=== PATIENT | male | born 1975 | race Caucasian/White ===

== ENCOUNTER 2020-05-01 16:19 | Emergency (ER) | payer SELFPAY ==
[2020-05-01 16:35] VITALS: BP 116/67; PULSE 72; RESP 14; TEMP 36.7; O2SAT 98; BMI 29.9
--- NOTE | 2020-05-01 16:36 | ECG_ITS ---
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
--- NOTE | 2020-05-01 16:36 | XR_ITS ---
WS: [id number] PORTABLE CHEST HISTORY: chest pain COMPARISON: None available. Very minimal bronchial thickening in the RIGHT medial RIGHT lower lobe. Otherwise lungs are clear. No pleural effusion or pneumothorax. Cardiac size: Normal. Mediastinum/Aorta: Normal mediastinum. No osseous abnormality seen. XR/XR chest 1V portable [id number] IMPRESSION: Mild bronchitis medial RIGHT lower lobe.
[2020-05-01 17:25] LABS: Basophils # 0.1 10^3/uL (0.0-0.1); Basophils % 0.7 %; Eosinophils # 0.1 10^3/uL (0.0-0.8); Eosinophils % 0.7 %; Hematocrit 47.3 % (42.0-52.0); Hemoglobin 15.7 g/dL (11.7-16.6); Lymphocytes # 1.3 10^3/uL (0.8-4.8); Lymphocytes % 11.6 %; Mean Corpuscular HGB Conc 33.2 g/dL (30.0-36.0); Mean Corpuscular Hemoglobin 29.6 pg (28.0-34.0); Mean Corpuscular Volume 89.1 fL (80-94); Mean Platelet Volume 8.5 fL (7.4-10.4); Monocytes # 0.6 10^3/uL (0.2-0.9); Monocytes % 5.5 %; Neutrophils # 8.72 10^3/uL (1.8-7.7); Neutrophils % 81.2 %; Nucleated Red Blood Cells % 0 %; Platelet Count 360 10^3/cmm (130-400); Red Blood Count 5.31 10^6/uL (4.1-5.3); White Blood Count 10.7 10^3/uL (4.0-10.0)
[2020-05-01 17:44] LABS: Alanine Aminotransferase 18 U/L (0-41); Alkaline Phosphatase 97 IU/L (40-130); Anion Gap 11.7 (5-19); Aspartate Amino Transferase 15 U/L (0-40); Blood Urea Nitrogen 15 mg/dL (6-20); Calcium 9.9 mg/dL (8.5-10.5); Carbon Dioxide 29 mmol/L (22-29); Chloride 102 mmol/L (98-107); Glomerular Filtration Rate 90.8 mL/min (90-130); Glucose 114 mg/dL (65-115); Osmolality Calculated 290 mOsm/kg (285-295); Potassium 3.7 mmol/L (3.5-5.1); Sodium 139 mmol/L (136-145); Total Bilirubin 0.3 mg/dL (0.15-1.2)
[2020-05-01 18:29] LABS: Troponin(5th) Baseline 6 ng/L (0-15)
== END 2020-05-01 17:55 | disposition left against medical advice (07) ==
LOC: ER 16:37
PROVIDERS: Emergency Provider Physician Assistant
DX: Z53.21 Procedure and treatment not carried out due to patient leaving prior to being seen by health care provider (principal)
CPT/HCPCS: 36415; 71045; 80053; 84484; 85025; 93005; 99281; 99283

== ENCOUNTER 2022-12-13 13:56 | Emergency (ER) | payer SELFPAY ==
[2022-12-13 14:05] VITALS: BP 131/89; PULSE 80; RESP 18; TEMP 36.8; O2SAT 98; BMI 30.7
--- NOTE | 2022-12-13 14:15 | CTR_ITS ---
PROCEDURE INFORMATION: Exam: CT Abdomen And Pelvis With Contrast Exam date and time: 12/13/2022 3:22 PM Age: 46 years old Clinical indication: Abdominal pain; Localized; Right lower quadrant (rlq); Additional info: Abd pain TECHNIQUE: Imaging protocol: Computed tomography of the abdomen and pelvis with contrast. Radiation optimization: All CT scans at this facility use at least one of these dose optimization techniques: automated exposure control; mA and/or kV adjustment per patient size (includes targeted exams where dose is matched to clinical indication); or iterative reconstruction. Contrast material: OMNI 350; Contrast volume: 100 ml; Contrast route: INTRAVENOUS (IV); REPORTING DATA: Count of CT and Cardiac NM exams in prior 12 months: This patient has received 0 known CTs and 0 known cardiac nuclear medicine studies in the 12 months prior to the current study. COMPARISON: CR XR chest 1V portable [id number] 05/01/2020 4:44 PM RADIATION DOSE METRICS: Total DLP (mGy-cm): 735.78 FINDINGS: Lungs: Bilateral dependent atelectasis. Diaphragm: Small hiatal hernia. Liver: Normal without focal lesions. Gallbladder and bile ducts: Normal. No calcified stones. No ductal dilation. Pancreas: Normal without ductal dilatation. Spleen: Normal. Adrenal glands: Normal. No mass. Kidneys and ureters: Bilateral renal cysts are present, as well as other subcentimeter hypodensities which are too small to characterize. These are statistically likely benign and require no dedicated imaging follow-up. Punctate left renal calcification. Otherwise unremarkable. Stomach and bowel: No dilatation. No mucosal thickening. Appendix: Normal. Intraperitoneal space: Unremarkable. No free air. No significant fluid collection. Vasculature: Unremarkable. No abdominal aortic aneurysm. Lymph nodes: No enlarged lymph nodes. Urinary bladder: Underdistended urinary bladder with mild wall thickening. Reproductive: Unremarkable as visualized. Bones/joints: No acute fracture. Mild degenerative changes along the imaged axial and proximal appendicular skeletal system. Soft tissues: Small fat containing umbilical hernia and tiny fat containing left inguinal hernia. CT/CT abdomen pelvis w con* [id number] IMPRESSION: 1. No acute findings to explain right lower quadrant abdominal pain. 2. Punctate nonobstructive left nephrolith. COMMENTS: Consistent with the [employer]'s Incidental Findings Committee white paper (J Am Asha Radiol 2018): Any incidental renal lesion less than 1 cm or classified as too small to characterize, or any incidental cystic renal lesion characterized as simple-appearing, is likely benign. No follow-up imaging is recommended for these lesions per consensus recommendations based on imaging criteria.
--- NOTE | 2022-12-13 14:18 | ED_ITS ---
HPI - Abdominal Pain General: Chief Complaint: Abdominal Pain Stated Complaint: losing consiousness, right side abd pain Time Seen by Provider: 12/13/22 14:04 Source: patient Mode of arrival: ambulatory Limitations: no limitations History of Present Illness: 46-year-old male states been having right side abdominal pain over the last 2 days. States this morning like it a burning sensation his upper abdomen he has been having a lot of burping as well states that he started having lower abdominal pain now states pain sharp in nature rates it a 5 out of 10 denies any diarrhea denies any fevers. He denies any worsening proving factors. Associated Symptoms: Denies chills, diarrhea, fever(s), nausea and vomiting Review of Systems Const: Denies: fever(s) or chills ENMT: Denies: throat pain or dental pain Card: Denies: chest pain Resp: Denies: dyspnea GI: Reports: abdominal pain; Denies: nausea, vomiting or diarrhea Musc: Denies: neck pain or back pain Skin/Breast: Denies: rash Neuro: Denies: headache(s) Physical Exam Const: COMMON NORMALS: no acute distress, patient oriented x3 and healthy appearing HENMT: COMMON NORMALS: normocephalic and atraumatic HEAD & SCALP: normocephalic and atraumatic Neck/C-Spine: COMMON NORMALS: full ROM and supple Chest: COMMONS NORMALS: normal inspection of the chest Resp: COMMON NORMALS: normal respiratory effort Cardio: COMMON NORMALS: regular rate, regular rhythm and No murmurs present (Cardio) RATE: regular rate RHYTHM: regular rhythm GI: COMMON NORMALS: Normal to inspection, nondistended, normoactive bowel sounds present, Soft to palpation and no masses PALPATION: Yes Soft to palpation OTHER: right sided abdominal tenderness Extremity: COMMON NORMALS: normal to inspection and full ROM Neuro: COMMON NORMALS: patient oriented x3, moves all extremities and no focal motor deficits Psych: COMMON NORMALS: mental status grossly normal, Normal thought process present and cooperative THOUGHT PROCESS: Normal thought process present Skin: COMMON NORMALS: no rashes or lesions noted and no wounds GENERAL SKIN EXAM: no rashes or lesions noted Course Vital Signs: Vital signs: Vital Signs Temperature 98.2 F 12/13/22 14:05 Pulse Rate 66 12/13/22 15:08 Respiratory Rate 18 12/13/22 15:05 Blood Pressure 125/85 12/13/22 15:08 Pulse Oximetry 98 12/13/22 15:08 Oxygen Delivery Me thod Room Air 12/13/22 15:08 MDM - Abdominal Pain Medical Decision Making Patient presents with abdominal pain likely gastritis his exam here at discharge is benign he feels much improved blood work and CT scan are normal we will place him on Protonix he is to follow-up with surgery return if worsening he understands agrees to plan. Medical Records I reviewed the patient's medical records. Lab Data I reviewed the patient's lab results. 12/13/22 15:00 12/13/22 15:00 Labs/Radiology: Radiology Impressions Abdomen/Pelvis CT 12/13/22 14:15 IMPRESSION: 1. No acute findings to explain right lower quadrant abdominal pain. 2. Punctate nonobstructive left nephrolith. COMMENTS: Consistent with the [employer]'s Incidental Findings Committee white paper (J Am Asha Radiol 2018): Any incidental renal lesion less than 1 cm or classified as too small to characterize, or any incidental cystic renal lesion characterized as simple-appearing, is likely benign. No follow-up imaging is recommended for these lesions per consensus recommendations based on imaging criteria. Laboratory Results WBC 11.86 10^3/uL (3.29-11.43) H 12/13/22 15:00 RBC 5.44 10^6/uL (3.85-5.65) 12/13/22 15:00 Hgb 16.40 g/dL (11.27-16.99) 12/13/22 15:00 Hct 47.5 % (37-53) 12/13/22 15:00 MCV 87.3 fl (82-101) 12/13/22 15:00 MCH 30.1 pg (27-33) 12/13/22 15:00 MCHC 34.5 g/dL (30-55) 12/13/22 15:00 RDW 12.1 % (12.1-15.1) 12/13/22 15:00 Plt Count 337 10^3/cmm (157-399) 12/13/22 15:00 MPV 8.5 fL (7.4-10.4) 12/13/22 15:00 Neut % (Auto) 85.2 % 12/13/22 15:00 Lymph % (Auto) 8.6 % 12/13/22 15:00 Haakon % (Auto) 5.1 % 12/13/22 15:00 Eos % (Auto) 0.2 % 12/13/22 15:00 Baso % (Auto) 0.6 % 12/13/22 15:00 Neut # (Auto) 10.11 10^3/uL (1.8-7.7) H 12/13/22 15:00 Lymph # (Auto) 1.0 10^3/uL (0.8-4.8) 12/13/22 15:00 Haakon # (Auto) 0.6 10^3/uL (0.2-0.9) 12/13/22 15:00 Eos # (Auto) 0.0 10^3/uL (0.0-0.8) 12/13/22 15:00 Baso # (Auto) 0.1 10^3/uL (0.0-0.1) 12/13/22 15:00 Nucleated RBC % (auto) 0 % 12/13/22 15:00 Nucleated RBCs # 0.0 /100WBC 12/13/22 15:00 Sodium 136 mmol/L (136-145) 12/13/22 15:00 Potassium 4.0 mmol/L (3.5-5.1) 12/13/22 15:00 Chloride 99 mmol/L (98-107) 12/13/22 15:00 Carbon Dioxide 30 mmol/L (22-29) H 12/13/22 15:00 Anion Gap 11.0 (5-19) 12/13/22 15:00 BUN 14 mg/dL (6-20) 12/13/22 15:00 Creatinine 1.0 mg/dL (0.7-1.2) 12/13/22 15:00 GFR Calculation 79.8 mL/min (90-130) L 12/13/22 15:00 Glucose 117 mg/dL (65-115) H 12/13/22 15:00 Calculated Osmolality 284 mOsm/kg (285-295) L 12/13/22 15:00 Calcium 9.6 mg/dL (8.5-10.5) 12/13/22 15:00 Total Bilirubin 0.6 mg/dL (0.15-1.2) 12/13/22 15:00 AST 23 U/L (0-40) 12/13/22 15:00 ALT 36 U/L (0-41) 12/13/22 15:00 Alkaline Phosphatase 105 U/L (40-130) 12/13/22 15:00 Total Protein 7.5 g/dL (6.6-8.7) 12/13/22 15:00 Albumin 4.1 g/dL (3.5-5.2) 12/13/22 15:00 Globulin 3.4 g/dL (1.3-4.6) 12/13/22 15:00 Lipase 19 U/L (13-60) 12/13/22 15:00 All radiology interpretation(s) finalized by discharge EKG Data EKG 1: I personally reviewed and interpreted this EKG as follows: EKG interpretation date: 12/13/22 EKG interpretation time: 15:10 Interpretation: nsr hr [address] or t wave abnormalities qrs 89 qtc 387 Discharge Plan Discharge Patient Disposition: Home Clinical Impression: Abdominal pain Condition: Stable Prescriptions: New Protonix 40 mg tablet,delayed release (DR/EC) 40 mg PO DAILY Qty: 60 0RF No Action pantoprazole 20 mg Tablet,Delayed Release (Dr/Ec) 20 mg PO .ONE TIME DOSE Goody's Extra Strength 500-325-65 mg Powder In Packet 1 ea PO DAILY PRN (Reason: Pain) Fishbiotic Amoxil 500mg 500 mg PO BID Discharge Orders: Discharge ED (Routine); Ordered 12/13/22 Ordered By: Fiona Roque Referrals: Onel Olson MD [Physician] - 1-3 days Discharge Diet: Advance as tolerated Discharge Activity: Resume usual activity Patient Instructions: Abdominal Pain (ED) Coding Level of Care Code ED Cryptographic Vulnerability Analyst for Clotilde Maldonado
--- NOTE | 2022-12-13 14:24 | PC.PHAR ---
pt states he takes care of his own medications-pt states he started taking fishbiotic amoxil 500mg bid on thu12/12/22 pt states has had 2 doses-pt states he took a one time dose of his friends pantoprazole-notes are made in the pharmacy comments
[2022-12-13 15:05] VITALS: RESP 18; O2SAT 94
[2022-12-13] MEDS: morphine 4 mg/mL SDV 1 mL IVP (15:05)
[2022-12-13] MEDS: ondansetron 2 mg/ML SDV 2 mL 4 MG IVP (15:06)
[2022-12-13 15:08] VITALS: BP 125/85; PULSE 66; O2SAT 98
--- NOTE | 2022-12-13 15:09 | ECG_ITS ---
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 Measurements Intervals [place] Rate: 82 P: 59 [place]: 191 QRS: 58 QRSD: 89 T: 38 QT: 349 QTc: 408 Interpretive Statements SINUS RHYTHM Compared to ECG 05/01/2020 16:44:52 Sinus arrhythmia no longer present Electronically Signed On 12-13-2022 16:22:30 CDT by Erica Samuels M.D. [id number]
[2022-12-13 15:16] LABS: Basophils # 0.1 10^3/uL (0.0-0.1); Basophils % 0.6 %; Eosinophils % 0.2 %; Hematocrit 47.5 % (37-53); Lymphocytes % 8.6 %; Mean Corpuscular HGB Conc 34.5 g/dL (30-55); Mean Corpuscular Hemoglobin 30.1 pg (27-33); Mean Corpuscular Volume 87.3 fl (82-101); Mean Platelet Volume 8.5 fL (7.4-10.4); Monocytes # 0.6 10^3/uL (0.2-0.9); Monocytes % 5.1 %; Neutrophils # 10.11 10^3/uL (1.8-7.7); Neutrophils % 85.2 %; Nucleated Red Blood Cells % 0 %; Platelet Count 337 10^3/cmm (157-399); Red Blood Count 5.44 10^6/uL (3.85-5.65); Red Cell Distribution Width 12.1 % (12.1-15.1); White Blood Count 11.86 10^3/uL (3.29-11.43)
[2022-12-13] MEDS: iohexol 350 mg/mL 500 mL Btl (per mL) IV (15:27)
[2022-12-13 15:38] LABS: Alanine Aminotransferase 36 U/L (0-41); Albumin Level 4.1 g/dL (3.5-5.2); Alkaline Phosphatase 105 U/L (40-130); Aspartate Amino Transferase 23 U/L (0-40); Blood Urea Nitrogen 14 mg/dL (6-20); Calcium 9.6 mg/dL (8.5-10.5); Carbon Dioxide 30 mmol/L (22-29); Chloride 99 mmol/L (98-107); Globulin 3.4 g/dL (1.3-4.6); Glomerular Filtration Rate 79.8 mL/min (90-130); Glucose 117 mg/dL (65-115); Lipase 19 U/L (13-60); Osmolality Calculated 284 mOsm/kg (285-295); Sodium 136 mmol/L (136-145); Total Bilirubin 0.6 mg/dL (0.15-1.2); Total Protein 7.5 g/dL (6.6-8.7)
[2022-12-13 15:44] LABS: Add Urine Microscopic? NO; Charge for UA Resulting for Rev
[2022-12-13 15:58] VITALS: BP 125/85; PULSE 79; O2SAT 96
[2022-12-13 16:02] LABS: Bilirubin Urine 1+ (Negative); Blood Urine Neg (Negative); Glucose Urine UA Norm (Normal); Ketones Urine Negative (Negative); Leukocyte Esterase Urine Negative (Negative); Nitrate Urine Negative (Negative); Protein Urine Neg (Negative); Urine Appearance Clear (CLEAR); Urine Color Yellow (Yellow); Urobilinogen Urine Norm (Negative); pH Urine 6.5 (5-7)
--- NOTE | 2022-12-15 08:19 | PC.SOCIAL ---
General Surgery Referral Referral message sent to clinic at this time. Clinic to contact patient with appt date/time.
== END 2022-12-13 15:59 | disposition home or self-care (01) ==
PROVIDERS: Emergency Provider Emergency Medicine
DX: R10.10 Upper abdominal pain, unspecified (principal)
CPT/HCPCS: 74177; 80053; 81003; 83690; 85025; 93005; 96374; 96375; 99285; J2270; J2405; Q9967

== ENCOUNTER 2023-07-08 15:14 | Emergency (ER) | payer SELFPAY ==
[2023-07-08 15:16] VITALS: BP 133/92; PULSE 75; RESP 18; TEMP 36.3; O2SAT 98; BMI 30.7
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
[2023-07-08] MEDS: HYDROcodone-acetaminophen 5-325 mg Tablet 1 TAB PO (15:51)
[2023-07-08 16:25] VITALS: BP 134/96; PULSE 69; RESP 16; TEMP 36.3; O2SAT 99
== END 2023-07-08 16:26 | disposition home or self-care (01) ==
PROVIDERS: Emergency Provider Emergency Medicine
DX: S13.4XXA Sprain of ligaments of cervical spine, initial encounter (principal); V89.2XXA Person injured in unspecified motor-vehicle accident, traffic, initial encounter
CPT/HCPCS: 72125; 72128; 99284

== ENCOUNTER 2023-10-03 04:01 | Emergency (ER) | payer OTHER, SELFPAY ==
[2023-10-03 04:15] VITALS: BP 141/97; PULSE 84; RESP 20; TEMP 36.4; O2SAT 95; BMI 30.7
[2023-10-03 04:31] VITALS: BP 120/78; PULSE 75; O2SAT 94
--- NOTE | 2023-10-03 04:44 | CTR_ITS ---
PROCEDURE INFORMATION: Exam: CT Abdomen And Pelvis With Contrast Exam date and time: 10/03/2023 4:50 AM Age: 47 years old Clinical indication: Nausea and vomiting; Abdominal pain; Localized; Right; Patient HX: C/O RT sided abd pain with n/v. ; Additional info: Right sided abd pain TECHNIQUE: Imaging protocol: Computed tomography of the abdomen and pelvis with contrast. Radiation optimization: All CT scans at this facility use at least one of these dose optimization techniques: automated exposure control; mA and/or kV adjustment per patient size (includes targeted exams where dose is matched to clinical indication); or iterative reconstruction. Contrast material: OMNI 350; Contrast volume: 100 ml; Contrast route: INTRAVENOUS (IV); COMPARISON: CT abdomen pelvis w con* [id number] 12/13/2022 3:22 PM RADIATION DOSE METRICS: Total DLP (mGy-cm): 731.77 FINDINGS: Lungs: Lung bases are clear as visualized. Liver: Normal. No mass. Gallbladder and biliary ducts: Normal. No calcified stones. No ductal dilation. Pancreas: Normal. No ductal dilation. Spleen: Normal. No splenomegaly. Adrenal glands: Normal. No mass. Kidneys and ureters: There are small benign-appearing renal cysts. Small nonobstructing renal calculus is noted on the left. Stomach and bowel: No dilated loops of large or small bowel is appreciated. There are scattered colonic diverticula. No bowel wall thickening is appreciated. Appendix: No evidence of appendicitis. Intraperitoneal space: Unremarkable. No free air. No significant fluid collection. Vasculature: Unremarkable. No abdominal aortic aneurysm. Lymph nodes: Unremarkable. No enlarged lymph nodes. Urinary bladder: Unremarkable as visualized. Reproductive: Unremarkable as visualized. Bones/joints: Unremarkable. No acute fracture. Soft tissues: There is a small fat filled periumbilical hernia. CT/CT abdomen pelvis w con* [id number] IMPRESSION: 1. Nephrolithiasis on the left. COMMENTS: Consistent with the [place] [employer] [employer]'s Incidental Findings Committee white paper (J Am Asha Radiol 2018): Any incidental renal lesion less than 1 cm or classified as too small to characterize, or any incidental cystic renal lesion characterized as simple-appearing, is likely benign. No follow-up imaging is recommended for these lesions per consensus recommendations based on imaging criteria.
[2023-10-03] MEDS: iohexol 350 mg/mL 500 mL Btl (per mL) IV (04:52)
--- NOTE | 2023-10-03 04:52 | ED_ITS ---
HPI - Abdominal Pain 2 General: Chief Complaint: Abdominal Pain Stated Complaint: abd pain n/v Time Seen by Provider: 10/03/23 04:25 History of Present Illness: Patient presents to the ER with complaints of right-sided abdominal pain. He said this been going on for several days but keeps getting worse. Patient googled the symptoms and he thinks he has appendicitis. Patient denies any nausea vomiting diarrhea constipation fevers chills Review of Systems 2 General: Reports: 10 or more systems reviewed and unremarkable except in HPI and below Physical Exam 2 Const: COMMON NORMALS: no acute distress, average body habitus, patient oriented x3, no limitations, healthy appearing, alert and well nourished HENMT: COMMON NORMALS: normocephalic, atraumatic, hearing grossly normal bilaterally, external ears normal, Normal external nose present and moist oral mucous membranes HEAD & SCALP: normocephalic and atraumatic NOSE: Normal external nose present EXTERNAL EAR: Yes external ears normal Neck/C-Spine: COMMON NORMALS: no JVD Chest: COMMONS NORMALS: normal inspection of the chest and normal palpation of entire chest wall Resp: COMMON NORMALS: normal respiratory effort, No retractions, No use of accessory muscles and clear to auscultation bilaterally AUSCULTATION: clear to auscultation bilaterally Cardio: COMMON NORMALS: no JVD, regular rate, regular rhythm, S1 normal heart sound present, S2 normal heart sound present, No gallops present (Cardio), No clicks present (Cardio), No murmurs present (Cardio) and No rub (Cardio) R ATE: regular rate RHYTHM: regular rhythm HEART SOUNDS: S1 normal heart sound present and S2 normal heart sound present GI: COMMON NORMALS: Normal to inspection, nondistended, normoactive bowel sounds present, Soft to palpation, No hepatosplenomegaly present and no masses; negative for non-tender (Mildly tender to palpation over right side of abdomen) PALPATION: Yes Soft to palpation and Yes No hepatosplenomegaly present Neuro: COMMON NORMALS: patient oriented x3 SENSORIUM/ORIENTATION: Yes alert Course 2 Vital Signs: Vital signs: Vital Signs Temperature 97.5 F L 10/03/23 04:15 Pulse Rate 75 10/03/23 04:31 Respiratory Rate 20 H 10/03/23 04:15 Blood Pressure 120/78 10/03/23 04:31 Pulse Oximetry 94 10/03/23 04:31 MDM - Abdominal Pain Medical Decision Making Patient had lab work to include CBC CMP magnesium lipase and abdomen pelvis CT with contrast, all of which was essentially benign except CTs did show nephrolithiasis on the left, small nonobstructing, these results was discussed with the patient and patient be discharged home. Differential Diagnosis Likely abdominal pain Medical Records I reviewed the patient's medical records. Lab Data I reviewed the patient's lab results. 10/03/23 04:21 10/03/23 04:21 Labs/Radiology: Radiology Impressions Abdomen/Pelvis CT 10/03/23 04:44 IMPRESSION: 1. Nephrolithiasis on the left. COMMENTS: Consistent with the [employer]'s Incidental Findings Committee white paper (J Am Asha Radiol 2018): Any incidental renal lesion less than 1 cm or classified as too small to characterize, or any incidental cystic renal lesion characterized as simple-appearing, is likely benign. No follow-up imaging is recommended for these lesions per consensus recommendations based on imaging criteria. Laboratory Results WBC 9.08 10^3/uL (3.29-11.43) 10/03/23 04:21 RBC 5.69 10^6/uL (3.85-5.65) H 10/03/23 04:21 Hgb 17.10 g/dL (11.27-16.99) H 10/03/23 04:21 Hct 50.4 % (37-53) 10/03/23 04:21 MCV 88.6 fl (82-101) 10/03/23 04:21 MCH 30.1 pg (27-33) 10/03/23 04:21 MCHC 33.9 g/dL (30-55) 10/03/23 04:21 RDW 12.1 % (12.1-15.1) 10/03/23 04:21 Plt Count 381 10^3/cmm (157-399) 10/03/23 04:21 MPV 8.4 fL (7.4-10.4) 10/03/23 04:21 Neut % (Auto) 71.0 % 10/03/23 04:21 Lymph % (Auto) 19.1 % 10/03/23 04:21 [place] % (Auto) 8.0 % 10/03/23 04:21 Eos % (Auto) 0.8 % 10/03/23 04:21 Baso % (Auto) 0.8 % 10/03/23 04:21 Neut # (Auto) 6.45 10^3/uL (1.8-7.7) 10/03/23 04:21 Lymph # (Auto) 1.7 10^3/uL (0.8-4.8) 10/03/23 04:21 [place] # (Auto) 0.7 10^3/uL (0.2-0.9) 10/03/23 04:21 Eos # (Auto) 0.1 10^3/uL (0.0-0.8) 10/03/23 04:21 Baso # (Auto) 0.1 10^3/uL (0.0-0.1) 10/03/23 04:21 Nucleated RBC % (auto) 0 % 10/03/23 04:21 Nucleated RBCs # 0.0 /100WBC 10/03/23 04:21 Sodium 139 mmol/L (136-145) 10/03/23 04:21 Potassium 3.7 mmol/L (3.5-5.1) 10/03/23 04:21 Chloride 101 mmol/L (98-107) 10/03/23 04:21 Carbon Dioxide 25 mmol/L (22-29) 10/03/23 04:21 Anion Gap 16.7 (5-19) 10/03/23 04:21 BUN 12 mg/dL (6-20) 10/03/23 04:21 Creatinine 0.8 mg/dL (0.7-1.2) 10/03/23 04:21 GFR Calculation 102.7 mL/min (90-130) 10/03/23 04:21 Glucose 116 mg/dL (65-115) H 10/03/23 04:21 Calculated Osmolality 289 mOsm/kg (285-295) 10/03/23 04:21 Calcium 9.8 mg/dL (8.5-10.5) 10/03/23 04:21 Total Bilirubin 0.4 mg/dL (0.15-1.2) 10/03/23 04:21 AST 20 U/L (0-40) 10/03/23 04:21 ALT 32 U/L (0-41) 10/03/23 04:21 Alkaline Phosphatase 100 U/L (40-130) 10/03/23 04:21 Total Protein 7.7 g/dL (6.6-8.7) 10/03/23 04:21 Albumin 4.2 g/dL (3.5-5.2) 10/03/23 04:21 Globulin 3.5 g/dL (1.3-4.6) 10/03/23 04:21 Lipase 47 U/L (13-60) 10/03/23 04:21 Urine Color Yellow (Yellow) 10/03/23 04:51 Urine Appearance Clear (CLEAR) 10/03/23 04:51 Urine pH 5 (5-7) 10/03/23 04:51 Ur Specific [place] 1.020 (1.005-1.030) 10/03/23 04:51 Urine Protein Neg (Negative) 10/03/23 04:51 Urine Glucose (UA) Norm (Normal) 10/03/23 04:51 Urine Ketones Negative (Negative) 10/03/23 04:51 Urine Blood Neg (Negative) 10/03/23 04:51 Urine Nitrate Negative (Negative) 10/03/23 04:51 Urine Bilirubin Neg (Negative) 10/03/23 04:51 Urine Urobilinogen Neg mg/dL (Negative) 10/03/23 04:51 Ur Leukocyte Esterase Negative (Negative) 10/03/23 04:51 All radiology interpretation(s) finalized by discharge Discharge Plan Discharge Patient Disposition: Home Clinical Impression: Nephrolithiasis Abdominal pain Qualifiers: Abdominal location: unspecified location Qualified Code(s): R10.9 - Unspecified abdominal pain Condition: Stable Prescriptions: No Action pantoprazole 20 mg Tablet,Delayed Release (Dr/Ec) 20 mg PO .ONE TIME DOSE [employer] Extra Strength 500-325-65 mg Powder In Packet 1 ea PO DAILY PRN (Reason: Pain) Fishbiotic Amoxil 500mg 500 mg PO BID Protonix 40 mg tablet,delayed release (DR/EC) 40 mg PO DAILY Qty: 60 0RF methocarbamol 750 mg tablet 750 mg PO Q6H PRN (Reason: spasms) Qty: 20 0RF Naprosyn 500 mg tablet 500 mg PO BID PRN (Reason: pain) Qty: 20 0RF Discharge Orders: Discharge ED (Routine); Ordered 10/03/23 Ordered By: Jason Pyle Patient Instructions: Abdominal Pain (ED), Kidney Stones (ED) Activity Restrictions/Additional Instructions: Your evaluation in the ER included lab work and imaging that showed a left kidney stone that is nonobstructing and no other findings. Your appendix looked normal. Please follow-up with your family practice physician for further evaluation and treatment as needed. Coding Level of Care Code ED Waste [employer] Worker for Clotilde Maldonado
[2023-10-03 04:53] LABS: Basophils # 0.1 10^3/uL (0.0-0.1); Basophils % 0.8 %; Eosinophils # 0.1 10^3/uL (0.0-0.8); Eosinophils % 0.8 %; Hematocrit 50.4 % (37-53); Lymphocytes # 1.7 10^3/uL (0.8-4.8); Lymphocytes % 19.1 %; Mean Corpuscular HGB Conc 33.9 g/dL (30-55); Mean Corpuscular Hemoglobin 30.1 pg (27-33); Mean Corpuscular Volume 88.6 fl (82-101); Mean Platelet Volume 8.4 fL (7.4-10.4); Monocytes # 0.7 10^3/uL (0.2-0.9); Neutrophils # 6.45 10^3/uL (1.8-7.7); Nucleated Red Blood Cells % 0 %; Platelet Count 381 10^3/cmm (157-399); Red Blood Count 5.69 10^6/uL (3.85-5.65); Red Cell Distribution Width 12.1 % (12.1-15.1); White Blood Count 9.08 10^3/uL (3.29-11.43)
[2023-10-03 04:53] LABS: Add Urine Microscopic? NO; Charge for UA Resulting for Rev
[2023-10-03 04:57] LABS: Bilirubin Urine Neg (Negative); Blood Urine Neg (Negative); Glucose Urine UA Norm (Normal); Ketones Urine Negative (Negative); Leukocyte Esterase Urine Negative (Negative); Nitrate Urine Negative (Negative); Protein Urine Neg (Negative); Urine Appearance Clear (CLEAR); Urine Color Yellow (Yellow); Urobilinogen Urine Neg (Negative); pH Urine 5 (5-7)
[2023-10-03 05:06] LABS: Alanine Aminotransferase 32 U/L (0-41); Albumin Level 4.2 g/dL (3.5-5.2); Alkaline Phosphatase 100 U/L (40-130); Anion Gap 16.7 (5-19); Aspartate Amino Transferase 20 U/L (0-40); Blood Urea Nitrogen 12 mg/dL (6-20); Calcium 9.8 mg/dL (8.5-10.5); Carbon Dioxide 25 mmol/L (22-29); Chloride 101 mmol/L (98-107); Globulin 3.5 g/dL (1.3-4.6); Glomerular Filtration Rate 102.7 mL/min (90-130); Glucose 116 mg/dL (65-115); Lipase 47 U/L (13-60); Osmolality Calculated 289 mOsm/kg (285-295); Potassium 3.7 mmol/L (3.5-5.1); Sodium 139 mmol/L (136-145); Total Bilirubin 0.4 mg/dL (0.15-1.2); Total Protein 7.7 g/dL (6.6-8.7)
[2023-10-03 05:48] VITALS: BP 133/94; PULSE 86; O2SAT 95
== END 2023-10-03 05:50 | disposition home or self-care (01) ==
PROVIDERS: Emergency Provider Emergency Medicine
DX: N20.0 Calculus of kidney (principal); Z79.899 Other long term (current) drug therapy
CPT/HCPCS: 74177; 80053; 81003; 83690; 85025; 99285; Q9967